=== PATIENT | female | born 1955 | race Caucasian/White ===

== ENCOUNTER 2016-12-21 14:42 | Emergency (ER) | payer SELFPAY | END 2016-12-21 15:00 | disposition home or self-care (01) | LOC: ER 14:42 | DX: M25.522 Pain in left elbow (principal); F17.200 Nicotine dependence, unspecified, uncomplicated; Z88.1 Allergy status to other antibiotic agents | CPT/HCPCS: 73060-LT; 96372; 99283; J1885 ==